=== PATIENT | female | born 1990 | race Caucasian/White ===

== ENCOUNTER 2020-04-28 00:33 | Outpatient (CLI) | payer SELFPAY ==
[2020-04-28 18:50] LABS: SARS-CoV-2 RNA PCR Negative
== END 2020-04-28 00:34 | disposition home or self-care (01) ==
LOC: ANHCOVIDDT 00:33
PROVIDERS: Visit Provider Surgery Plastic and Reconstructive Surgery
DX: Z01.812 Encounter for preprocedural laboratory examination (principal); Z20.822 Contact with and (suspected) exposure to COVID-19
CPT/HCPCS: C9803; U0003

== ENCOUNTER 2020-05-01 06:36 | Day surgery (SDC) | payer OTHER, SELFPAY ==
[2020-05-01] VITALS (7 sets, daily range): BP systolic 126–140; BP diastolic 86–98; PULSE 74–114; RESP 16–19; TEMP 36.2; O2SAT 99–100; BMI 26.1
[2020-05-01] MEDS: SCOPOLAMINE 1.5 MG PATCH TRANSDERM (07:51)
[2020-05-01] MEDS: LACTATED RINGERS 1,000 ML 30 ML IV CONT ×2 (07:52→10:32)
--- NOTE | 2020-05-01 08:00 | SUR.PREOP ---
pt quarantined per facility guidelines
--- NOTE | 2020-05-01 08:04 | WPDANESEPPF ---
Anes - Initial Pre Proc Eval Procedure: Operation Date: 05/01/20 09:00 Proposed Procedures p Bilateral Breast Augmentation Mammoplasty - Aaron Rubio MD Date/Time: 05/01/20 08:04 Surgeon: Aaron Rubio MD Pre Op Diagnosis: Micromastia Patient Data Age: 30 Gender: F Height: 5 ft 2.75 in Weight: 66.4 kg Last Vital Signs Temp 36.2 C L 05/01/20 07:30 Pulse 80 05/01/20 07:30 Resp 18 05/01/20 07:30 BP 126/89 05/01/20 07:30 Pulse Ox 100 05/01/20 07:30 Allergies Allergy/AdvReac Type Severity Reaction Status Date / Time codeine Allergy Severe FACE Verified 05/01/20 07:26 SWELLING Home Medications Medication Instructions Recorded Confirmed Type carisoprodol 350 mg tablet 350 mg PO TID PRN #21 tablet 04/23/20 05/01/20 Rx docusate sodium 100 mg capsule 100 mg PO BID #14 cap 04/23/20 05/01/20 Rx ondansetron HCl 4 mg tablet 4 mg PO Q6H #30 tablet 04/23/20 05/01/20 Rx oxycodone-acetaminophen 5 mg-325 1 tablet PO Q6H PRN #15 tablet 04/23/20 05/01/20 Rx mg tablet Patient hx anesthesia problems: none Family hx anesthesia problems: none [facility] Social History Social History Smoking status: Former smoker Alcohol intake: current Substance use: never Living arrangements: with family Gender identity (if verbalized by the patient): Female Anes - Eval Final PreProcedure Day of Procedure 05/01/20 08:04 Patient weight: normal Heart: regular rate and rhythm Lungs: clear to auscultation Airway: Mallampati scale class II Neurological: alert and oriented Last oral intake: >/= 8 hours ASA classification: I Emergent: no Anesthetic plan: proceed Anesthesia type and monitoring: general GIVS and LMA and standard monitoring Informed Consent: The patient's anesthetic plan and its attendant risks and benefits were discussed with the patient/family/POA. Questions were solicited and answers provided to the satisfaction of the patient/family/POA.
--- NOTE | 2020-05-01 08:21 | WPDHPUPDATE1 ---
History and Physical Update Update Date/Time: 05/01/20 08:21 History and Physical has been reviewed, including an updated exam of the patient. There are NO changes in the patient's condition. Risks, benefits, and alternatives have been discussed and questions answered. Patient agrees to proceed with procedure.
--- NOTE | 2020-05-01 08:30 | P.OP_ITS ---
Procedure Note - Detailed Date of procedure: 05/01/20 Pre-op diagnosis: Micromastia Post-op diagnosis: same Procedure performed: Bilateral Augmentation Mammaplasty Description of procedure: She is here today for bilateral breast augmentation. Previously and again today the risks, benefits, alternatives were discussed in extensive detail. I wanted her to be very realistic about the risks involved as well as expectations. We discussed aftercare and what to monitor for. Made sure answered all of her questions to her satisfaction today and consent was obtained. Marked in the preoperative holding area with their verification. The patient was taken to the operating room placed supine on the operating table. Anesthesia was provided by anesthesiology. A surgical time-out was taken. We cleansed the skin and 1% lidocaine and 0.25% Marcaine with epinephrine was used anesthetize as a field block. She was prepped and draped in a standard sterile fashion. Tegaderm nipple Erazo were placed. A 15 blade used to make an incision along the inframammary fold. Dissection was continued at 45 degree angle until the chest wall as identified. I elevated bilaterally superficial to the pectoralis fascia in a dual plane 3 approach. I incised the pectoralis major along its inferior border and completely released the inferior border leaving the medial border intact. I created a subpectoral pocket in the appropriate dimensions based on our preoperative planning for the implant. I then copiously irrigated with saline solution and verified a strict hemostasis. Next the use a triple antibiotic and Betadine containing solution to irrigate the pocket. I washed my gloves with the triple antibiotic and Betadine solution. We washed the implant immediately upon opening it with this solution and only opened it when we needed it. I used implant funnel and no-touch technique. The implant was introduced into the pocket using the funnel. Having verified positioning of the implant this was closed using 2-0 Vicryl followed by 3-0 Mo nocryl in a running subcuticular 4-0 Monocryl followed by tissue glue. Fluffs, Carlitos wrap, and surgical bra were placed. Patient was awoke and taken to PACU without difficulty. All instrument sponge counts were correct at the end of the case. Anesthesia: GLMA Surgeon: Aaron Rubio MD Estimated blood loss (mL): 20 Drains: No Packing: No Pathology: none sent Complications: No immediate complications Condition: stable Disposition: PACU Findings: Bilateral Dual plane 3 Natrelle Inpira SoftTouch Implants Right: REF# [id number] SN [id number] Left: REF # [id number]
[2020-05-01] MEDS: ceFAZolin SODIUM 2 GM/20 ML SW SYRINGE IV PUSH (08:49)
[2020-05-01] MEDS: LIDO 1%/EPINEPHRINE 1:100,000 20 ML VIAL 60 ML INFILTRATE (09:11)
[2020-05-01] MEDS: fentaNYL CITRATE INJ (*CRX) 100 MCG/2 ML VIAL 25 MCG IV PUSH ×4 (10:09→10:36)
[2020-05-01] MEDS: ONDANSETRON INJ 4 MG/2 ML VIAL IV PUSH (10:09)
--- NOTE | 2020-05-01 10:45 | WPDANESPN ---
Anes - Prog Note Post-Op Date/Time: 05/01/20 10:45 Cardiovascular status: normal Respiratory status: normal Airway patency: baseline Mental status: baseline Vital Signs: Last Vital Signs Temp 36.2 C L 05/01/20 09:57 Pulse 74 05/01/20 10:43 Resp 16 05/01/20 10:43 BP 140/96 H 05/01/20 10:43 Pulse Ox 99 05/01/20 10:43 Pain Score (VAS): 4/10 Post-procedural complaints: none Patient Feedback: Patient satisfied with anesthetic care. Other Findings: Patient is stable for discharge.
== END 2020-05-01 11:33 | disposition home or self-care (01) ==
PROVIDERS: Visit Provider Surgery Plastic and Reconstructive Surgery
PROC: (CPT 19325; principal; 2020-05-01 09:00)
DX: N64.82 Hypoplasia of breast (principal)
CPT/HCPCS: 19325